=== PATIENT | female | born 1950 | race Caucasian/White ===

== ENCOUNTER 2020-01-29 22:34 | Inpatient (IN) | payer MEDICARE, MEDICAID ==
[~2020-01-29] VITALS: Ht 167.6 cm; Wt 71.7 kg
[~2020-01-29 22:34] MED LIST: ASPIRIN325 PO; CYMBALTA20 MG PO; FUROSEMIDE; GEODON; IMITREX; K-DUR10 ME1; KAPVAY0.1 MG; LEXAPRO; LOSARTAN-HCTZ1 EAC1; MELATONIN5 M1 PO; METFORMIN; NAPROSYN375 MG PO; OXYBUTYNIN; PREVACID30 M1 PO; PRILOSEC 20 MG20 MG; PROPANOLOL ER; VESICARE; ZANTAC 150MG T150 M1 PO; ZOCOR
[2020-01-29 22:35] VITALS: BP 182/108
[2020-01-29] MEDS ORDERED: BACLOFEN 10MG T10 MG PO (23:36)
[2020-01-29 23:37] LABS: ABSOLUTE BASOPHILS 0.1 thou/uL (0.0-0.2); ABSOLUTE LYMPHOCYTES 3.3 thou/uL (0.8-5.3); ABSOLUTE MONOCYTES 0.7 thou/uL (0.0-1.2); ABSOLUTE NEUTROPHILS 5.5 thou/uL (1.6-8.1); BASOPHILS 0.7 %; CALCIUM 9.3 mg/dL (8.5-10.1); CREATININE 1.2 mg/dL (0.6-1.3); EOSINOPHILS 0.1 %; HEMATOCRIT 48.8 % (37.0-47.0); HEMOGLOBIN 16.5 gm/dL (12.0-15.0); MCH 29.9 pg (26.0-34.0); MCHC 33.9 g/dL (28.0-37.0); MCV 88.3 fL (80.0-100.0); MONOCYTES 7.6 %; MPV 7.9 fl. (7.2-11.1); NUCLEATED RBCS 0 /100WBC; POLYS 57.6 %; POTASSIUM 4.1 mmol/L (3.5-5.1); RBC 5.52 mil/uL (4.20-5.00); RDW-CV 15.1 % (10.5-14.5); WBC 9.6 thou/uL (4.0-11.0)
[2020-01-29] MEDS ORDERED: COREG6.25 MG PO (23:38)
[2020-01-29 23:39] LABS: INR 1.1; PROTIME 11.6 Seconds (9.20-11.50)
[2020-01-29] MEDS ORDERED: PLAVIX 75 MG TA75 MG PO (23:39)
[2020-01-29] MEDS ORDERED: NORCO 5-325 TA1 EAC1 PO (23:40)
[2020-01-29] MEDS ORDERED: LUVOX 50MG TABL50 M1 PO (23:40)
[2020-01-29] MEDS ORDERED: LOVASTATIN 20 M20 MG PO (23:41)
[2020-01-29] MEDS ORDERED: SEROQUEL 25 MG25 MG PO ×2 (23:42)
[2020-01-29] MEDS ORDERED: MIRALAX119 GM PO (23:42)
[2020-01-29] MEDS ORDERED: TRAZODONE HCL50 MG PO (23:43)
[2020-01-29] MEDS ORDERED: ACETAMINOPHEN500 M1 PO (23:44)
[2020-01-29 23:47] LABS: MAGNESIUM 2.3 mg/dL (1.8-2.4); TOTAL BILIRUBIN 0.8 mg/dL (<0.1-1.0); TOTAL PROTEIN 8.7 g/dL (6.4-8.2)
[2020-01-29 23:50] LABS: URINE BILIRUBIN NEGATIVE (Negative); URINE BLOOD TRACE (Negative); URINE CLARITY CLEAR; URINE COLOR YELLOW; URINE GLUCOSE-RANDOM NEGATIVE (Negative); URINE KETONES TRACE (Negative); URINE LEUKOCYTES-REFLEX NEGATIVE (Negative); URINE PROTEIN 3+ (Negative); URINE SPECIFIC GRAVITY >= 1.030 (1.005-1.030)
[2020-01-29 23:51] LABS: URINE NITRITE-REFLEX POSITIVE (Negative)
[2020-01-30 00:03] LABS: COARSE GRANULAR CASTS 0-3 Few /LPF (None Seen); SQUAMOUS >10 Many /LPF (0-3)
[2020-01-30 00:04] LABS: AMORPHOUS URATES Few /LPF (None Seen); URINE RBC 0-2 Rare /HPF (0-2); URINE WBC-REFLEX 6-15 Few /HPF (0-5)
[2020-01-30 01:17] LABS: PLATELET ESTIMATE ADEQUATE
[2020-01-30 01:18] LABS: PLATELET COUNT* 277 thou/uL (150-400)
[2020-01-30 03:26] LABS: CALCIUM 8.1 mg/dL (8.5-10.1); CREATININE 1.1 mg/dL (0.6-1.3); POTASSIUM 3.4 mmol/L (3.5-5.1)
[2020-01-30 05:04] VITALS: BP 153/83
[2020-01-30 07:36] LABS: CALCIUM 7.8 mg/dL (8.5-10.1); POTASSIUM 3.6 mmol/L (3.5-5.1)
[2020-01-30 09:13] VITALS: BP 122/86; BP 128/77
--- NOTE | 2020-01-30 09:38 | EKG ---
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: : 1950 Requested By: Radha Chou Order Number: [id number] MD: Gino Mustafa Measurements Intervals [place] Rate: 102 P: 55 SC: 187 QRS: 57 QRSD: 77 T: -45 QT: 321 QTc: 419 Interpretive Statements Sinus tachycardia Borderline low voltage, extremity leads Borderline repolarization abnormality Compared to ECG 05/27/2011 16:13:11 Sinus rhythm no longer present Electronically Signed On 01-30-2020 9:36:59 CDT by Gino Mustafa [email or web address] <ELECTRONICALLY SIGNED> By: Gino Mustafa MD, FACC 01/30/20 0936 2246 2246 Gino Mustafa MD, [facility] /EPI
[2020-01-30 12:41] VITALS: BP 137/75
[2020-01-30 13:20] VITALS: BP 117/61
[2020-01-30 16:52] VITALS: BP 145/61
[2020-01-30 20:00] VITALS: BP 139/64
[2020-01-31] VITALS: BP 157/80
[2020-01-31 02:07] LABS: GLYCOHEMOGLOBIN (HGB A1C) 6.4 % (4.8-5.6)
[2020-01-31 04:00] VITALS: BP 165/86
[2020-01-31 06:35] LABS: HEMATOCRIT 40.3 % (37.0-47.0); MCH 29.8 pg (26.0-34.0); MCHC 34.3 g/dL (28.0-37.0); MCV 86.9 fL (80.0-100.0); MPV 7.7 fl. (7.2-11.1); RBC 4.64 mil/uL (4.20-5.00); RDW-CV 14.8 % (10.5-14.5); WBC 9.8 thou/uL (4.0-11.0)
[2020-01-31 06:38] LABS: HEMOGLOBIN 13.8 gm/dL (12.0-15.0)
[2020-01-31 06:51] LABS: ALBUMIN 3.5 g/dL (3.4-5.0); CREATININE 0.8 mg/dL (0.6-1.3); MAGNESIUM 2.2 mg/dL (1.8-2.4); POTASSIUM 3.1 mmol/L (3.5-5.1); TOTAL BILIRUBIN 0.7 mg/dL (<0.1-1.0); TOTAL PROTEIN 7.4 g/dL (6.4-8.2)
[2020-01-31 08:00] VITALS: BP 135/115
[2020-01-31 12:20] VITALS: BP 156/85
[2020-01-31 20:15] VITALS: BP 157/82
[2020-02-01] VITALS: BP 136/68
[2020-02-01 04:00] VITALS: BP 174/92
[2020-02-01 05:45] LABS: HEMATOCRIT 36.2 % (37.0-47.0); HEMOGLOBIN 12.5 gm/dL (12.0-15.0); MCH 29.9 pg (26.0-34.0); MCHC 34.5 g/dL (28.0-37.0); MCV 86.6 fL (80.0-100.0); RBC 4.18 mil/uL (4.20-5.00); RDW-CV 14.8 % (10.5-14.5); WBC 7.1 thou/uL (4.0-11.0)
[2020-02-01 05:56] LABS: ALBUMIN 3.1 g/dL (3.4-5.0); CALCIUM 8.6 mg/dL (8.5-10.1); CREATININE 0.9 mg/dL (0.6-1.3); MAGNESIUM 2.1 mg/dL (1.8-2.4)
[2020-02-01 05:58] LABS: POTASSIUM 2.8 mmol/L (3.5-5.1)
[2020-02-01 08:00] VITALS: BP 161/84
[2020-02-01 12:09] VITALS: BP 178/82
[2020-02-01 17:32] VITALS: BP 152/73
[2020-02-01 20:00] VITALS: BP 146/76
[2020-02-02] VITALS: BP 158/65
[2020-02-02 04:00] VITALS: BP 165/67
[2020-02-02 08:00] VITALS: BP 160/89
[2020-02-02] MEDS ORDERED: CEFUROXIME250 MG PO (11:37)
[2020-02-02] MEDS ORDERED: TAMIFLU75 MG PO (11:39)
[2020-02-02 11:56] VITALS: BP 156/82
[2020-02-02 16:00] VITALS: BP 148/84
[2020-02-02 20:00] VITALS: BP 152/82
[2020-02-03 03:00] VITALS: BP 168/71
[2020-02-03 04:00] VITALS: BP 154/76
[2020-02-03 08:00] VITALS: BP 135/81; BP 158/109
[2020-02-03 08:43] LABS: ABSOLUTE EOSINOPHILS 0.2 thou/uL (0.0-0.7); ABSOLUTE LYMPHOCYTES 1.4 thou/uL (0.8-5.3); ABSOLUTE MONOCYTES 0.6 thou/uL (0.0-1.2); ABSOLUTE NEUTROPHILS 5.9 thou/uL (1.6-8.1); BASOPHILS 0.4 %; EOSINOPHILS 2.1 %; HEMATOCRIT 44.7 % (37.0-47.0); LYMPHOCYTES 17.1 %; MCH 29.9 pg (26.0-34.0); MCV 85.5 fL (80.0-100.0); MONOCYTES 7.1 %; MPV 7.5 fl. (7.2-11.1); NUCLEATED RBCS 0 /100WBC; PLATELET COUNT* 244 thou/uL (150-400); POLYS 73.3 %; RBC 5.22 mil/uL (4.20-5.00); RDW-CV 14.6 % (10.5-14.5)
[2020-02-03 08:49] LABS: HEMOGLOBIN 15.6 gm/dL (12.0-15.0)
[2020-02-03 09:01] LABS: ALBUMIN 3.8 g/dL (3.4-5.0); CALCIUM 9.4 mg/dL (8.5-10.1); CREATININE 0.9 mg/dL (0.6-1.3); MAGNESIUM 1.9 mg/dL (1.8-2.4); POTASSIUM 3.2 mmol/L (3.5-5.1); TOTAL BILIRUBIN 0.7 mg/dL (<0.1-1.0); TOTAL PROTEIN 8.1 g/dL (6.4-8.2)
[2020-02-03 14:12] VITALS: BP 158/109
[2020-02-03] MEDS ORDERED: ZINC SULFATE220 MG PO (14:29)
== END 2020-02-03 17:00 | DRG 871 ==
LOC: M.ERS 22:34 → M.TBA-ER 01-30 01:01 → M.2W 01-30 01:01
PROVIDERS: Emergency Medicine; Family Medicine; ADMIT Internal Medicine
DX: A41.9 Sepsis, unspecified organism (principal); G92 Toxic encephalopathy; E87.0 Hyperosmolality and hypernatremia; Z16.39 Resistance to other specified antimicrobial drug; F03.91 Unspecified dementia, unspecified severity, with behavioral disturbance; I69.351 Hemiplegia and hemiparesis following cerebral infarction affecting right dominant side; N30.00 Acute cystitis without hematuria; F31.9 Bipolar disorder, unspecified; R13.10 Dysphagia, unspecified; B96.20 Unspecified Escherichia coli [E. coli] as the cause of diseases classified elsewhere; K21.9 Gastro-esophageal reflux disease without esophagitis; E03.9 Hypothyroidism, unspecified; I10 Essential (primary) hypertension; E11.9 Type 2 diabetes mellitus without complications; Z79.899 Other long term (current) drug therapy; Z88.0 Allergy status to penicillin; Z90.710 Acquired absence of both cervix and uterus; Z90.49 Acquired absence of other specified parts of digestive tract

== ENCOUNTER 2020-02-10 10:53 | Inpatient (IN) | payer MEDICARE, MEDICAID ==
[~2020-02-10] VITALS: Ht 162.6 cm; Wt 69.8 kg
[~2020-02-10 10:53] MED LIST changes: +ACETAMINOPHEN500 M1 PO; +BACLOFEN 10MG T10 MG PO; +CEFUROXIME250 MG PO; +COREG6.25 MG PO; +LOVASTATIN 20 M20 MG PO; +LUVOX 50MG TABL50 M1 PO; +MIRALAX119 GM PO; +NORCO 5-325 TA1 EAC1 PO; +PLAVIX 75 MG TA75 MG PO; +SEROQUEL 25 MG25 MG PO; +TAMIFLU75 MG PO; +TRAZODONE HCL50 MG PO; +ZINC SULFATE220 MG PO
[2020-02-10 10:58] VITALS: BP 161/93
[2020-02-10 11:33] LABS: URINE BILIRUBIN NEGATIVE (Negative); URINE BLOOD TRACE (Negative); URINE CLARITY CLEAR; URINE COLOR YELLOW; URINE GLUCOSE-RANDOM NEGATIVE (Negative); URINE KETONES NEGATIVE (Negative); URINE LEUKOCYTES-REFLEX NEGATIVE (Negative); URINE NITRITE-REFLEX NEGATIVE (Negative); URINE PROTEIN 2+ (Negative); URINE SPECIFIC GRAVITY >= 1.030 (1.005-1.030); URINE UROBILINOGEN 0.2 E.U./dl (0.2-1.0)
[2020-02-10 11:38] LABS: SQUAMOUS 4-10 Moderate /LPF (0-3)
[2020-02-10 11:39] LABS: BACTERIA-REFLEX >30 Many /HPF (None Seen); MUCUS 4-6 Moderate strn/LPF (None Seen); URINE RBC 0-2 Rare /HPF (0-2); URINE WBC-REFLEX 0-5 Rare /HPF (0-5)
[2020-02-10 11:40] LABS: CASTS None Seen /LPF (None Seen); CRYSTALS None Seen /LPF (None Seen)
[2020-02-10 12:04] LABS: ABSOLUTE BASOPHILS 0.1 thou/uL (0.0-0.2); ABSOLUTE LYMPHOCYTES 2.4 thou/uL (0.8-5.3); ABSOLUTE MONOCYTES 0.5 thou/uL (0.0-1.2); ABSOLUTE NEUTROPHILS 3.8 thou/uL (1.6-8.1); BASOPHILS 0.8 %; EOSINOPHILS 0.7 %; HEMATOCRIT 43.7 % (37.0-47.0); HEMOGLOBIN 14.5 gm/dL (12.0-15.0); MCH 29.2 pg (26.0-34.0); MCHC 33.1 g/dL (28.0-37.0); MCV 88.1 fL (80.0-100.0); MPV 7.6 fl. (7.2-11.1); NUCLEATED RBCS 0 /100WBC; PLATELET COUNT* 288 thou/uL (150-400); POLYS 56.5 %; RBC 4.96 mil/uL (4.20-5.00); RDW-CV 15.4 % (10.5-14.5); WBC 6.8 thou/uL (4.0-11.0)
[2020-02-10 12:12] LABS: INR 1.1; PROTIME 11.7 Seconds (9.20-11.50)
[2020-02-10 12:15] LABS: CREATININE 1.1 mg/dL (0.6-1.3); POTASSIUM 3.6 mmol/L (3.5-5.1)
[2020-02-10 12:16] LABS: INFLUENZA A ANTIGEN Negative (Negative); INFLUENZA B ANTIGEN Negative (Negative)
[2020-02-10 12:27] LABS: ALBUMIN 3.3 g/dL (3.4-5.0); TOTAL BILIRUBIN 0.4 mg/dL (<0.1-1.0); TOTAL PROTEIN 7.8 g/dL (6.4-8.2)
[2020-02-10 13:18] LABS: AMP/METHAMP Negative (Negative); BARBITURATES Negative (Negative); BENZODIAZEPINES Negative (Negative); COCAINE Negative (Negative); METHADONE Negative (Negative); OPIATES POSITIVE (Negative); PCP Negative (Negative); THC Negative (Negative)
[2020-02-10 13:22] LABS: BE -0.4 mmol/L (-2 to +3); PO2 110.2 mmHg (75.0-100.0); pH 7.387 (7.340-7.450)
[2020-02-10 14:25] VITALS: BP 141/73
[2020-02-10 17:42] VITALS: BP 149/81
[2020-02-10 20:00] VITALS: BP 134/81
[2020-02-11] VITALS: BP 172/91
[2020-02-11 04:00] VITALS: BP 154/76
[2020-02-11 12:40] VITALS: BP 163/59
[2020-02-11 13:10] LABS: ABSOLUTE BASOPHILS 0.1 thou/uL (0.0-0.2); ABSOLUTE EOSINOPHILS 0.1 thou/uL (0.0-0.7); ABSOLUTE LYMPHOCYTES 2.9 thou/uL (0.8-5.3); ABSOLUTE MONOCYTES 0.5 thou/uL (0.0-1.2); ABSOLUTE NEUTROPHILS 5.3 thou/uL (1.6-8.1); BASOPHILS 0.7 %; EOSINOPHILS 0.6 %; HEMATOCRIT 38.6 % (37.0-47.0); HEMOGLOBIN 13.3 gm/dL (12.0-15.0); LYMPHOCYTES 32.6 %; MCH 30.1 pg (26.0-34.0); MCHC 34.6 g/dL (28.0-37.0); MCV 87.2 fL (80.0-100.0); MONOCYTES 5.2 %; MPV 7.2 fl. (7.2-11.1); NUCLEATED RBCS 0 /100WBC; PLATELET COUNT* 243 thou/uL (150-400); POLYS 60.9 %; RBC 4.43 mil/uL (4.20-5.00); RDW-CV 15.2 % (10.5-14.5); WBC 8.7 thou/uL (4.0-11.0)
[2020-02-11 13:16] LABS: CREATININE 0.8 mg/dL (0.6-1.3); POTASSIUM 3.3 mmol/L (3.5-5.1)
[2020-02-11 16:01] VITALS: BP 181/82
[2020-02-11 16:53] VITALS: BP 166/75
[2020-02-11 19:30] VITALS: BP 159/88
[2020-02-12 00:48] VITALS: BP 135/79
[2020-02-12 05:00] LABS: HEMATOCRIT 41.4 % (37.0-47.0); HEMOGLOBIN 13.8 gm/dL (12.0-15.0); MCH 29.6 pg (26.0-34.0); MCHC 33.3 g/dL (28.0-37.0); MCV 88.9 fL (80.0-100.0); MPV 7.5 fl. (7.2-11.1); RBC 4.65 mil/uL (4.20-5.00); RDW-CV 15.1 % (10.5-14.5); WBC 8.8 thou/uL (4.0-11.0)
[2020-02-12 05:04] VITALS: BP 107/72
[2020-02-12 05:19] LABS: ALBUMIN 3.3 g/dL (3.4-5.0); CREATININE 0.8 mg/dL (0.6-1.3); POTASSIUM 3.7 mmol/L (3.5-5.1); TOTAL BILIRUBIN 0.6 mg/dL (<0.1-1.0); TOTAL PROTEIN 6.5 g/dL (6.4-8.2)
[2020-02-12 08:30] VITALS: BP 148/77
[2020-02-12 11:59] VITALS: BP 146/86
[2020-02-12 18:04] VITALS: BP 127/55
[2020-02-12 20:00] VITALS: BP 134/47
[2020-02-13 00:05] VITALS: BP 115/55
[2020-02-13 04:55] VITALS: BP 122/59
--- NOTE | 2020-02-13 07:26 | CON ---
[address] [address] CONSULTATION Name: LINDYKASH Rafael Room: [address] IN .R.#: [id number] Admission: 02/10/20 Attend Phys: Ivett Worthington MD Discharge: Date of : 46 Report #: [id number] THIS REPORT FOR: //name// cc: CLAY Boo family physician/PCP CLAY - Ema family physician/PCP ~ THIS REPORT FOR: //name// CC: CLAY physician/PCP Ivett Worthington DATE OF SERVICE: 02/12/2020 INFECTIOUS DISEASE CONSULTATION ATTENDING PHYSICIAN: Ivett Worthington MD REASON FOR EVALUATION: Febrile illness with recent diagnosis of complicated urinary tract infection with profound encephalopathy, who was recently hospitalized with some hypernatremia. At this point, she is unable to give any history whatsoever. She barely arouses. She is relatively stable hemodynamically. She has still some low-grade fevers. She is on therapy with ceftriaxone at this point. COVID test was negative. ALLERGIES: LISTED TO PENICILLIN. MEDICATIONS: Include ceftriaxone, clopidogrel, duloxetine, hydralazine, acetaminophen, famotidine, enoxaparin, quetiapine, atorvastatin, carvedilol, hydrocodone, ondansetron. PAST MEDICAL HISTORY: Has known history of Parkinson's with dementia, psychosis apparently, previous stroke, diabetes mellitus, hypothyroidism, reflux, hypertension, previous cholecystectomy, hysterectomy, bipolar, depression. SOCIAL HISTORY: Nonsmoker, no ethanol. Not aware of any drug use. FAMILY HISTORY: Noncontributory. REVIEW OF SYSTEMS: Unobtainable. PHYSICAL EXAMINATION: GENERAL: She is lying supine. She barely opens her eyes. There is no clear evidence of comprehension at this point. Quite somnolent, undernourished, chronically ill appearing. VITAL SIGNS: T-max overnight 99.9, more recently 99.2; pulse 80; respirations 14; blood pressure 148/77. SKIN: Warm, [place] [address] CONSULTATION Name: KASH ISRAEL Room: [address]#: [id number] Admission: 02/10/20 Attend Phys: Ivett Worthington MD Discharge: Date of : 46 Report #: [id number] HEENT: Normocephalic. Extraocular muscles intact. NECK: Supple. LUNGS: Diminished breath sounds. HEART: Regular. I do not appreciate any murmur. ABDOMEN: Soft. There is some degree of grimacing, it is not quite clear, it is not reproducible, ____ bilateral at times during the exam. GENITOURINARY AND RECTAL: Deferred. LABORATORY DATA: Blood cultures collected on the are sterile thus far. Urine culture in progress. The previous urine culture had low numbers of Escherichia coli without a susceptibility. Electrolytes: Sodium 144, potassium 3.7. Sodium is down from admission of 153. Chloride 108, bicarbonate is 22, anion gap of 14, BUN and creatinine 14 and 0.8, glucose 131. LFTs unremarkable. Albumin of 3.3. Total protein of 6.5. Estimated GFR of 71. CBC: White count of 8.8, H and H 13.8 and 41.4, platelets of 237. Previous differential was generally unremarkable. Coronavirus testing was negative on the 4th. CT of the chest, no evidence of acute pneumonitis. CTA head, moderate chronic changes with prominent ventricles suggesting hydrocephalus. ABGs: pH of 7.387, pCO2 of 42.0, pO2 of 110.2 on room air. Drug screen was positive for opioids. Ammonia level 16. Lactic acid initially 1.3. Troponin less than 0.06. Influenza antigen was negative. Urinalysis, 0-5 white cells. ASSESSMENT: Febrile illness with marked encephalopathy, it is not clear as to her baseline, but her hypernatremia is cleared and it seems not to ____ CT of her abdomen and pelvis. There is no elevation of liver function tests, perhaps discomfort on exam. Does have a previous cholecystectomy and hysterectomy. We will continue empiric therapy. I will await culture results. She appears to be ill, not overtly toxic. We will see how she does clinically over the next 24-48 hours. <ELECTRONICALLY SIGNED> By: Jose Estrada MD 02/13/20 0726 1046 [id number] Estrada MD /nt
[2020-02-13 08:27] VITALS: BP 144/65
[2020-02-13 12:00] VITALS: BP 129/50
[2020-02-13 16:00] VITALS: BP 118/55
[2020-02-13 23:59] VITALS: BP 136/96
[2020-02-14 04:00] VITALS: BP 148/71
[2020-02-14 08:15] VITALS: BP 184/84
[2020-02-14 12:00] VITALS: BP 181/91
[2020-02-14 12:23] LABS: HEMATOCRIT 47.1 % (37.0-47.0); HEMOGLOBIN 15.7 gm/dL (12.0-15.0); MCH 29.8 pg (26.0-34.0); MCHC 33.4 g/dL (28.0-37.0); MCV 89.2 fL (80.0-100.0); MPV 8.2 fl. (7.2-11.1); RBC 5.28 mil/uL (4.20-5.00); RDW-CV 14.9 % (10.5-14.5); WBC 11.1 thou/uL (4.0-11.0)
[2020-02-14 12:59] LABS: ALBUMIN 3.6 g/dL (3.4-5.0); CALCIUM 9.1 mg/dL (8.5-10.1); CREATININE 0.9 mg/dL (0.6-1.3); MAGNESIUM 1.8 mg/dL (1.8-2.4); POTASSIUM 3.4 mmol/L (3.5-5.1); TOTAL BILIRUBIN 0.9 mg/dL (<0.1-1.0); TOTAL PROTEIN 7.8 g/dL (6.4-8.2)
--- NOTE | 2020-02-14 13:29 | EKG ---
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 : 1950 Requested By: Adin Espinoza Order Number: [id number] MD: Gino Mustafa Measurements Intervals [place] Rate: 83 P: 0 W[place]: 70 QRS: 60 QRSD: 108 T: 87 QT: 356 QTc: 419 Interpretive Statements Sinus rhythm Short [place] interval Low voltage, precordial leads Nonspecific T abnormalities, lateral leads Artifact in lead(s) II,III,aVL,aVF,V1,V2,V3,V4,V5,V6 Compared to ECG 02/10/2020 11:08:35 Short [place] interval now present T-wave abnormality still present Electronically Signed On 02-14-2020 13:27:57 CDT by Gino Mustafa [email or web address] <ELECTRONICALLY SIGNED> By: Gino Mustafa MD, [facility] 02/14/20 1327 1205 1205 Gino Mustafa MD, [facility] /EPI
[2020-02-14 16:00] VITALS: BP 202/90
[2020-02-14 19:05] VITALS: BP 178/88
[2020-02-15] VITALS: BP 141/62
[2020-02-15 03:59] VITALS: BP 148/70
[2020-02-15 08:00] VITALS: BP 159/73
[2020-02-15 12:00] VITALS: BP 171/87
[2020-02-15 16:15] VITALS: BP 172/71
[2020-02-15 18:10] LABS: ABSOLUTE EOSINOPHILS 0.1 thou/uL (0.0-0.7); ABSOLUTE LYMPHOCYTES 1.7 thou/uL (0.8-5.3); ABSOLUTE MONOCYTES 0.4 thou/uL (0.0-1.2); ABSOLUTE NEUTROPHILS 3.4 thou/uL (1.6-8.1); BASOPHILS 0.6 %; HEMATOCRIT 39.4 % (37.0-47.0); LYMPHOCYTES 30.1 %; MCHC 34.4 g/dL (28.0-37.0); MCV 87.2 fL (80.0-100.0); MONOCYTES 7.4 %; MPV 7.6 fl. (7.2-11.1); NUCLEATED RBCS 0 /100WBC; PLATELET COUNT* 181 thou/uL (150-400); POLYS 59.9 %; RBC 4.52 mil/uL (4.20-5.00); WBC 5.7 thou/uL (4.0-11.0)
[2020-02-15 18:12] LABS: HEMOGLOBIN 13.5 gm/dL (12.0-15.0)
[2020-02-15 18:49] LABS: CALCIUM 8.3 mg/dL (8.5-10.1); CREATININE 0.8 mg/dL (0.6-1.3); MAGNESIUM 1.9 mg/dL (1.8-2.4); PHOSPHORUS* 3.3 mg/dL (2.5-4.9)
[2020-02-15 19:05] LABS: POTASSIUM 2.9 mmol/L (3.5-5.1)
[2020-02-15 20:10] VITALS: BP 122/55
[2020-02-16] VITALS: BP 129/54
[2020-02-16 04:00] VITALS: BP 130/47
[2020-02-16 08:00] VITALS: BP 97/58
[2020-02-16 11:36] LABS: URINE BILIRUBIN NEGATIVE (Negative); URINE BLOOD NEGATIVE (Negative); URINE CLARITY CLEAR; URINE COLOR YELLOW; URINE GLUCOSE-RANDOM NEGATIVE (Negative); URINE KETONES NEGATIVE (Negative); URINE LEUKOCYTES-REFLEX NEGATIVE (Negative); URINE NITRITE-REFLEX NEGATIVE (Negative); URINE PROTEIN NEGATIVE (Negative); URINE UROBILINOGEN 0.2 E.U./dl (0.2-1.0)
--- NOTE | 2020-02-16 12:21 | EKG ---
[place] [address] ELECTROCARDIOGRAM REPORT Name: KASH ISRAEL Room: [address] IN .R.#: [id number] Admission: 02/10/20 Attend Phys: Ivett Worthington, Discharge: Date of : 46 Date of Service: 02/10/20 1108 Report #: [id number] THIS REPORT FOR: //name// [facility] ED Test Date: 2020-02-10 Test Time: 11:08:35 Pat Name: KASH ISRAEL Department: Room: 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: : 1950 Requested By: Deejay Knox Order Number: [id number] MD: Louis Post Measurements Intervals [place] Rate: 87 P: 61 [place]: 185 QRS: 52 QRSD: 84 T: -45 QT: 355 QTc: 427 Interpretive Statements Sinus rhythm Nonspecific ST segment and T-wave abnormality Borderline low voltage, extremity leads Compared to ECG 01/29/2020 22:46:49 Sinus tachycardia no longer present Electronically Signed On 02-11-2020 14:51:45 CDT by Louis Post [email or web address] <ELECTRONICALLY SIGNED> By: Louis Post MD, FAC 02/11/20 1451 1108 1108 Louis Post MD, FAC /EPI
[2020-02-16 15:41] VITALS: BP 158/61
[2020-02-16 20:10] VITALS: BP 161/84
[2020-02-17 05:35] LABS: HEMATOCRIT 39.2 % (37.0-47.0); HEMOGLOBIN 13.2 gm/dL (12.0-15.0); MCH 29.4 pg (26.0-34.0); MCHC 33.7 g/dL (28.0-37.0); MCV 87.4 fL (80.0-100.0); MPV 7.3 fl. (7.2-11.1); RBC 4.49 mil/uL (4.20-5.00); RDW-CV 15.3 % (10.5-14.5); WBC 4.8 thou/uL (4.0-11.0)
[2020-02-17 05:52] LABS: CALCIUM 8.8 mg/dL (8.5-10.1); CREATININE 0.8 mg/dL (0.6-1.3); POTASSIUM 3.5 mmol/L (3.5-5.1)
[2020-02-17 08:07] VITALS: BP 154/51
[2020-02-17] MEDS ORDERED: CEFDINIR300 MG PO (08:36)
[2020-02-17] MEDS ORDERED: NORCO 5-325 TA1 EAC1 PO (08:36)
[2020-02-17 10:28] VITALS: BP 154/51
== END 2020-02-17 14:35 | DRG 871 ==
LOC: M.ERS 10:53 → M.2W 12:39 → M.TBA-ER 12:39 → M.2W 12:39 → M.ORTHSURG 14:49 → M.2W 02-11 12:00
PROVIDERS: Family Medicine; ADMIT Internal Medicine; ATTEND Internal Medicine
DX: A41.9 Sepsis, unspecified organism (principal); G92 Toxic encephalopathy; N39.0 Urinary tract infection, site not specified; Z16.39 Resistance to other specified antimicrobial drug; E87.0 Hyperosmolality and hypernatremia; E86.0 Dehydration; G20 Parkinson's disease; R65.20 Severe sepsis without septic shock; F31.9 Bipolar disorder, unspecified; E11.9 Type 2 diabetes mellitus without complications; E03.9 Hypothyroidism, unspecified; K21.9 Gastro-esophageal reflux disease without esophagitis; F02.80 Dementia in other diseases classified elsewhere, unspecified severity, without behavioral disturbance, psychotic disturbance, mood disturbance, and anxiety; I10 Essential (primary) hypertension; Z86.73 Personal history of transient ischemic attack (TIA), and cerebral infarction without residual deficits; Z90.49 Acquired absence of other specified parts of digestive tract; Z90.710 Acquired absence of both cervix and uterus; Z79.899 Other long term (current) drug therapy; Z88.0 Allergy status to penicillin; Z03.818 Encounter for observation for suspected exposure to other biological agents ruled out